=== PATIENT | male | born 1950 | race Caucasian/White ===

== ENCOUNTER → 2016-10-30 | Outpatient (CLI) | payer MEDICARE, BC ==
[2015-04-14 06:09] VITALS: BP 123/61
[~2016-10-30] MED LIST: AMIO200T2 PO; ASPI325T4 PO; CARV25TA2 PO; CLOP75TA PO; CLOP75TA27 PO; ICOS1CAP PO; LISI40TA PO; OXYC-323 PO; SIMV40TA3 PO
--- NOTE | 2016-10-30 10:56 | RAD ---
Indication: Abdominal aortic aneurysm. Technique: Ultrasound abdomen complete was performed. Comparison is a CT from December 27, 2015. Findings: Visualized pancreas is unremarkable. Distal abdominal aortic aneurysm measures up to 4.4 cm AP compared to 4.3 cm by my measurement on prior CT. It does not extend into either common iliac artery. IVC is patent. Liver is mildly increased in echogenicity with left hepatic cyst measuring 18 mm. Common bile duct measures 7 mm. Gallbladder is reported as absent. Kidneys are without hydronephrosis or mass. Spleen is not enlarged. Impression: 1. Stable abdominal aortic aneurysm. 2. Fatty infiltration of the liver. 3. Hepatic cyst. 4. Mildly prominent common bile duct can be within normal limits post cholecystectomy.
== END | disposition home or self-care (01) ==
LOC: US 08:14
PROVIDERS: ATTEND Internal Medicine Cardiovascular Disease
DX: I71.4 Abdominal aortic aneurysm, without rupture (principal); K76.0 Fatty (change of) liver, not elsewhere classified; K76.89 Other specified diseases of liver
CPT/HCPCS: 76700

== ENCOUNTER → 2017-10-21 | Outpatient (CLI) | payer MEDICARE ==
[~2017-10-21] MED LIST changes: -AMIO200T2 PO; -ASPI325T4 PO; -CARV25TA2 PO; -CLOP75TA PO; -CLOP75TA27 PO; +DIAZEPAM 10 MG TABLET.; +EPINEPHrine 1 MG/ML VIAL; +HEPARIN SODIUM 5,000 UNIT/ML VIAL for PCVC.; -ICOS1CAP PO; +IODIXANOL 270 MG/ML 100 ML VIAL.; +IV NORMAL SALINE 1000ML BAG 1,000 ML; +LIDOCAINE 1% Multi-Dose 20 ML VIAL.; -LISI40TA PO; +MIDAZOLAM HCL/PF 2 MG/2 ML VIAL.; -OXYC-323 PO; -SIMV40TA3 PO; +fentaNYL PF VIAL 100 MCG/2 ML VIAL
== END ==
LOC: PCVCINTER 09:05
DX: I71.4 Abdominal aortic aneurysm, without rupture (principal); I70.1 Atherosclerosis of renal artery; I10 Essential (primary) hypertension
CPT/HCPCS: 36245; 36252; 37242; 75630; 75716; 75726; 76937; 99153; C1751; C1760; C1769; C1894; J0171; J1644; J2250; J3010; J7030

== ENCOUNTER → 2017-11-04 | Outpatient (CLI) | payer MEDICARE | END | disposition home or self-care (01) | LOC: CT 08:59 | DX: M47.894 Other spondylosis, thoracic region (principal); I70.0 Atherosclerosis of aorta; N28.1 Cyst of kidney, acquired; R91.1 Solitary pulmonary nodule; Z90.49 Acquired absence of other specified parts of digestive tract | CPT/HCPCS: 71250 ==

== ENCOUNTER → 2018-12-01 | Outpatient (CLI) | payer MEDICARE, BC ==
[2015-04-14 06:09] VITALS: BP 123/61
[~2018-12-01] MED LIST changes: +AMIO200T4 PO; +ASPI325T8 PO; +CARV25TA2 PO; +CLOP75TA PO; +CLOP75TA57 PO; -DIAZEPAM 10 MG TABLET.; -EPINEPHrine 1 MG/ML VIAL; -HEPARIN SODIUM 5,000 UNIT/ML VIAL for PCVC.; +ICOS1CAP PO; -IODIXANOL 270 MG/ML 100 ML VIAL.; -IV NORMAL SALINE 1000ML BAG 1,000 ML; -LIDOCAINE 1% Multi-Dose 20 ML VIAL.; +LISI-130 PO; -MIDAZOLAM HCL/PF 2 MG/2 ML VIAL.; +OXYC1TAB15 PO; +SIMV40TA3 PO; -fentaNYL PF VIAL 100 MCG/2 ML VIAL
--- NOTE | 2018-12-01 13:26 | PCVCIMAG ---
EXAM: BILATERAL CAROTID DUPLEX INDICATION: Carotid Occlusive Disease. FINDINGS: Doppler Measurements (centimeters per second): RIGHT: Peak CCA-51, Peak ECA-73, Diastolic ICA-29, Peak ICA-58, ICA/CCA Ratio-1.1. LEFT: Peak CCA-77, Peak ECA-74, Diastolic ICA-25, Peak ICA-64, ICA/CCA Ratio-0.8. RIGHT CAROTID: The carotid bulb has moderate plaque. The proximal internal carotid artery shows <40% stenosis. The common carotid artery shows no significant stenosis. The external carotid artery shows no significant stenosis. LEFT CAROTID: The carotid bulb has moderate plaque. The proximal internal carotid artery shows <40% stenosis. The common carotid artery shows no significant stenosis. The external carotid artery shows no significant stenosis. Antegrade flow in both vertebral arteries. IMPRESSION: <40% stenosis of the right internal carotid artery with moderate plaque. <40% stenosis of the left internal carotid artery with moderate plaque. LOC:[place] [id number]
== END | disposition home or self-care (01) ==
LOC: PCVCIMAG 08:00
PROVIDERS: ATTEND Nuclear Medicine Nuclear Cardiology
DX: I65.23 Occlusion and stenosis of bilateral carotid arteries (principal); I25.119 Atherosclerotic heart disease of native coronary artery with unspecified angina pectoris
CPT/HCPCS: 93880

== ENCOUNTER → 2018-12-04 | Outpatient (CLI) | payer MEDICARE, BC ==
[2015-04-14 06:09] VITALS: BP 123/61
== END | disposition home or self-care (01) ==
LOC: PCVCCLINIC 10:00
PROVIDERS: ATTEND Nuclear Medicine Nuclear Cardiology
DX: I71.4 Abdominal aortic aneurysm, without rupture (principal); I10 Essential (primary) hypertension; I77.9 Disorder of arteries and arterioles, unspecified; I25.119 Atherosclerotic heart disease of native coronary artery with unspecified angina pectoris; E78.00 Pure hypercholesterolemia, unspecified; E78.5 Hyperlipidemia, unspecified; Z87.891 Personal history of nicotine dependence; Z79.899 Other long term (current) drug therapy; Z79.82 Long term (current) use of aspirin
CPT/HCPCS: G0463

== ENCOUNTER → 2020-05-19 | Outpatient (CLI) | payer MEDICARE, BC ==
[2015-04-14 06:09] VITALS: BP 123/61
[~2020-05-19] MED LIST changes: +IOHEXOL 350 MG/ML 100 ML VIAL. IV ONE; +SIMV40TA18 PO; -SIMV40TA3 PO
[2020-05-19 09:13] LABS: CREATININE 1.3 mg/dL (0.7-1.3); GFR 54.6
--- NOTE | 2020-05-19 14:32 | RAD ---
CTA of the abdomen, and pelvis compared to CTA of the abdomen and pelvis dated December 27, 2015 for abdominal aortic aneurysm. TECHNIQUE: Contiguous axial images are obtained through the abdomen and pelvis both before and after administration of IV contrast in the arterial phase. Sagittal and coronal MIPS are evaluated as are 3-D volume rendered images of the vasculature. Nonvascular findings: Heart is enlarged but stable. Simple hepatic cyst is stable. No significant abnormalities involving the liver, pancreas, spleen, or bilateral adrenal glands. Evaluation of solid organ parenchyma is limited by phase of contrast however. There are several simple cysts involving both kidneys, for which no additional follow-up is required. At the anterior medial pole of the right kidney there is 1.5 cm partially exophytic abnormality which is hyperdense on noncontrast imaging with Hounsfield units of 71. This is consistent with a hyperdense renal cyst, and once again no further evaluation is required. Similar benign hyperdense simple cyst is seen in the mid pole anteriorly of the left kidney, 1 cm, no follow-up. There are several small retroperitoneal and mesenteric lymph nodes, with no suspicious adenopathy identified. There are innumerable sigmoid diverticula, with no evidence of acute diverticulitis. Evaluation of large and small bowel is limited by lack of oral contrast. No areas of focal bowel wall thickening or bowel dilatation however. Urinary bladder is mostly decompressed. Prostate is enlarged with coarse calcifications centrally. This is grossly stable from the prior exam however. There are degenerative changes the spine with no osteoblastic or osteolytic bone lesions. There is likely at least some degree of bony central canal stenosis particularly at L1-2 and L2-3. Vascular findings: There has been interval treatment of an abdominal aortic aneurysm with an abdominal aortic endograft, resulting in involution of the aneurysm nearly entirely. Maximal sac diameter today is 2.9 cm. No evidence of endoleak. Mild soft and calcified atherosclerosis of the iliac and visualized femoral arteries. There are 2 left and there is one right renal artery, all which are patent with at least mild atherosclerosis. Superior mesenteric and celiac arteries are also patent with mild atherosclerosis. The DOTTIE is occluded at its origin by vascular. IMPRESSION: 1. Interval placement of an abdominal aortic endograft resulted in successful exclusion and involution of the abdominal aortic aneurysm. No evidence of endoleak. 2. Mild multifocal atherosclerosis with no hemodynamic significant stenoses in any distribution. 3. Stable enlarged prostate. PQRS Compliance Statement: One or more of the following individualized dose reduction techniques were utilized for this examination: 1. Automated exposure control 2. Adjustment of the mA and/or kV according to patient size 3. Use of iterative reconstruction technique Electronically signed by: Aldo Choudhary MD (05/19/2020 2:29 PM) [id number]
--- NOTE | 2020-05-20 14:04 | RAD ---
MR#: [id number] Date of Study: 05/19/2020 Ordering Physician: PETR BROWNLEE, Referring Physician: LILLIAN APONTE Tech: RT Randal (R) (N) APPROVED REPORT Test Type: Exercise Stress Nurse/Tech: Sherry TREJO Test Indications: CAD, Dyspnea Cardiac History: CABG x4 in 2015, HTN, See EMR Medications: See EMR Medical History: Smoker, See EMR Resting ECG: SR Resting Heart Rate: 53 bpm Resting Blood Pressure: 147/81mmHg Pretest Chest Pain: No chest pain Nurse/Tech Notes Lungs CTA, Heart tones regular. Consent: The procedure was explained to the patient in lay terms. Informed consent was witnessed. Lamonte eout was entered into [employer]. History and Stress Test performed by LAURENCE Lakhani Stress Symptoms Dyspnea POST EXERCISE Reason for Termination: Reached target heart rate Target HR: Yes Max HR: 132 bpm 103% of Maximum Predicted HR: 127 bpm Exercise duration: 7:39 min:sec, 3 Stage Exercise capacity: 10.0METs Max Blood Pressure: 186/79mmHg Blood Pressure response to exercise: Normal blood pressure response during stress. Heart Rate response to exercise: WNL Chest Pain: No. Arrhythmia: Yes. Frequent PVCs and PACs ST Change: No. INTERPRETATION Stress EKG Conclusion: No evidence of stress induced EKG changes. Imaging Protocol IMAGE PROTOCOL: Rest Tc-99m/stress Tc-99m 1 day Rest: Stress: Viability: Radiopharm.Tc99m XtvycbgrhFv28b Sestamibi Qkwn79gQr 33mCi Duration 15min. 15min. Img Date 05/19/2020 05/19/2020 Inj-Img [id number]. 60min. Rest Admin Site:IV - Left AntecubitalAdministrator:LAURENCE Lakhani Stress Admin Site: IV - Left AntecubitalAdministrator: RT Randal (R)(N) STRESS DATA End Diast. Vol.240.0mlAv. Heart Rate73.0bpm End Syst. Vol.182.0mlCO Index BSA0.0L/min Myocardial Wlbt770.0gEject. Ihnnvqqo13.0% Stress Rates Pk. Fill Rate1.08EDV/secLVtime Pk. Fill 247.47msec Pk. Empty Rate1.68ESV/secLVtime Pk. Ypohb717.86msec 1/3 Pk. Fill0.29EDV/sec Stress Scores Regional WT2.00Summed WT25.00 Regional WM1.00Summed WM29.00 LV Perfusion Extensive basal to distal inferior basal to mid inferolateral basal to distal septal and mid to dista l anterior wall and apical fixed defect suggestive of prior large territory LAD and RCA territory inf arcts. No obvious reversible defects are noted. Wall Motion Severe LV dysfunction with ejection fraction of 20 to 25% LV Perf. Quant 17 Seg. SSS33.00 17 Seg. SRS33.00 17 Seg. SDS2.00 Stress Defect Extent (% LAD)68.10Rest Defect Extent (% LAD)65.00Rev. Defect Extent (% LAD)3.10 Stress Defect Extent (% LCX) 43.80Rest Defect Extent (% LCX)23.80Rev. Defect Extent (% LCX)21.30 Stress Defect Extent (% RCA)54.40Rest Defect Extent (% RCA)65.60Rev. Defect Extent (% RCA)0.00 Stress Defect Extent (% DANG)63.00Rest Defect Extent (% DANG)60.20Rev. Defect Extent (% DANG)8.70 Other Information Quality:Average Risk Assessment: Moderate-High Risk Conclusion 1. No evidence of stress-induced EKG changes with adequate workload at maximum of 10 metabolic equiva lents 2. Large fixed defect as described above involving the LAD and RCA territories 3. Severe LV dysfunction with ejection fraction of 25% 4. Moderate to high risk for future cardiovascular events Signed by : Petr Brownlee, Electronically Approved : 05/20/2020 14:04:07
== END | disposition home or self-care (01) ==
LOC: NM 08:55
PROVIDERS: ATTEND Internal Medicine Cardiovascular Disease
DX: I71.4 Abdominal aortic aneurysm, without rupture (principal); N40.0 Benign prostatic hyperplasia without lower urinary tract symptoms; K57.30 Diverticulosis of large intestine without perforation or abscess without bleeding; K57.92 Diverticulitis of intestine, part unspecified, without perforation or abscess without bleeding; I51.7 Cardiomegaly; K76.89 Other specified diseases of liver; I10 Essential (primary) hypertension; F17.210 Nicotine dependence, cigarettes, uncomplicated; Z95.1 Presence of aortocoronary bypass graft
CPT/HCPCS: 36415; 74174; 78452; 82565; 84520; 93017; A9500; Q9967

== ENCOUNTER 2020-06-23 06:36 | Outpatient (CLI) | payer MEDICARE, BC ==
[~2020-06-23] VITALS: Ht 182.9 cm; Wt 98.4 kg
[2020-06-23] VITALS (11 sets, daily range): BP systolic 86–139; BP diastolic 54–68
[~2020-06-23 06:36] MED LIST changes: -AMIO200T4 PO; +AMIO200T6 PO; -IOHEXOL 350 MG/ML 100 ML VIAL. IV ONE
[2020-06-23] MEDS ORDERED: AMLO-186 PO (07:12)
[2020-06-23 07:29] LABS: HEMATOCRIT 49.2 % (39.0-53.0); HEMOGLOBIN 16.6 g/dL (13.0-17.5); RED BLOOD COUNT 6.08 x10^6/uL (4.30-5.70); RED CELL DISTRIBUTION WIDTH 14.2 % (11.5-14.5); WHITE BLOOD COUNT 8.5 x10^3/uL (4.0-11.0)
[2020-06-23 07:38] LABS: CALCIUM 8.6 mg/dL (8.5-10.1); CREATININE 1.5 mg/dL (0.7-1.3); GFR 46.3; POTASSIUM 4.2 mmol/L (3.5-5.1)
[2020-06-23] MEDS ORDERED: IODIXANOL 320 MG/ML 100 ML VIAL. ONE (07:42)
[2020-06-23] MEDS ORDERED: LIDOCAINE 1% Multi-Dose 20 ML VIAL. ONE (07:42)
[2020-06-23] MEDS ORDERED: HEPARIN for ARTERIAL LINE 1,500 ML ONE (07:42)
[2020-06-23] MEDS ORDERED: MIDAZOLAM HCL/PF 2 MG/2 ML VIAL. ONE (08:24)
[2020-06-23] MEDS ORDERED: fentaNYL PF VIAL 100 MCG/2 ML VIAL ONE (08:24)
--- NOTE | 2020-06-23 08:41 | PDOC1 ---
History and Physical Visit Information Date of Admission: Jun 23, 2020 Source: Patient History of Present Illness History of Present Illness Rupert is a pleasant 69-year-old man with a past medical history as noted below who presents to the hospital today for planned cardiac catheterization in the setting of an abnormal stress test and exertional dyspnea and chest pain. Risks and benefits were discussed with the patient and he is willing to proceed Cardiac Risk Factors Comments 1. Hypertension 2. PAD 3. Prior coronary artery bypass surgery 4. Dyslipidemia 5. Tobacco abuse Current Medications Current Medications Current Medications Fentanyl Citrate (Fentanyl 2ml Vial) 100 mcg STK-MED ONCE .ROUTE ; Start 06/23/20 at 08:24; Stop 06/23/20 at 08:24; Status DC Heparin Sodium/ Sodium Chloride 1,500 ml @ As Directed STK-MED ONCE .ROUTE ; Start 06/23/20 at 07:42; Stop 06/23/20 at 07:43; Status DC Iodixanol (Visipaque 320) 100 ml STK-MED ONCE .ROUTE ; Start 06/23/20 at 07:42; Stop 06/23/20 at 07:42; Status DC Lidocaine HCl (Lidocaine 1% 20ml Vial) 20 ml STK-MED ONCE .ROUTE ; Start 06/23/20 at 07:42; Stop 06/23/20 at 07:42; Status DC Midazolam HCl (Versed) 2 mg STK-MED ONCE .ROUTE ; Start 06/23/20 at 08:24; Stop 06/23/20 at 08:24; Status DC Allergies Allergies Allergies Coded Allergies Type Severity Reaction Last Updated Verified No Known Drug Allergies 04/14/15 No Social History Comments Positive for occasional alcohol and tobacco use. No illicit drug use. He is . ROS Review of System Negative for 10 out of 14 systems reviewed unless otherwise mentioned above in HPI Physical Exam Comments The patient appeared well nourished and normally developed. Head exam is unremarkable. No scleral icterus or corneal arcus noted. Neck is without jugular venous distension, thyromegaly, or carotid bruits. Carotid upstr okes are brisk bilaterally. Lungs are clear to auscultation and percussion. Cardiac exam reveals the PMI to be normally sized and situated. Rhythm is regular. First and second heart sounds normal. No murmurs, rubs or gallops. Abdominal exam reveals normal bowel sounds, no masses, no organomegaly and no aortic enlargement. Extremities are nonedematous and both femoral and pedal pulses are normal. Msk: No traumua Neuro: No focal deficits Vitals VITALS Vital Signs Date Time Temp Pulse Resp B/P (MAP) Pulse Ox O2 Delivery O2 Flow Rate FiO2 06/23/20 07:28 97.8 68 16 139/62 (87) 96 Room Air 97.8 Labs Labs Laboratory Tests Test 06/23/20 07:18 White Blood Count 8.5 x10^3/uL (4.0-11.0) Red Blood Count 6.08 x10^6/uL (4.30-5.70) Hemoglobin 16.6 g/dL (13.0-17.5) Hematocrit 49.2 % (39.0-53.0) Mean Corpuscular Volume 81 fL (79-100) Mean Corpuscular Hemoglobin 27 pg (25-35) Mean Corpuscular Hemoglobin Concent 34 g/dL (31-37) Red Cell Distribution Width 14.2 % (11.5-14.5) Platelet Count 146 x10^3/uL (140-400) Prothrombin Time 13.0 SEC (11.7-14.0) Prothromb Time International Ratio 1.0 (0.8-1.1) Sodium Level 143 mmol/L (136-145) Potassium Level 4.2 mmol/L (3.5-5.1) Chloride Level 108 mmol/L (98-107) Carbon Dioxide Level 24 mmol/L (21-32) Anion Gap 11 (6-14) Blood Urea Nitrogen 22 mg/dL (8-26) Creatinine 1.5 mg/dL (0.7-1.3) Estimated GFR (Cockcroft-Gault) 46.3 Glucose Level 133 mg/dL (70-99) Calcium Level 8.6 mg/dL (8.5-10.1) Laboratory Tests Test 06/23/20 07:18 White Blood Count 8.5 x10^3/uL (4.0-11.0) Red Blood Count 6.08 x10^6/uL (4.30-5.70) Hemoglobin 16.6 g/dL (13.0-17.5) Hematocrit 49.2 % (39.0-53.0) Mean Corpuscular Volume 81 fL (79-100) Mean Corpuscular Hemoglobin 27 pg (25-35) Mean Corpuscular Hemoglobin Concent 34 g/dL (31-37) Red Cell Distribution Width 14.2 % (11.5-14.5) Platelet Count 146 x10^3/uL (140-400) Prothrombin Time 13.0 SEC (11.7-14.0) Prothromb Time International Ratio 1.0 (0.8-1.1) Sodium Level 143 mmol/L (136-145) Potassium Level 4.2 mmol/L (3.5-5.1) Chloride Level 108 mmol/L (98-107) Carbon Dioxide Level 24 mmol/L (21-32) Anion Gap 11 (6-14) Blood Urea Nitrogen 22 mg/dL (8-26) Creatinine 1.5 mg/dL (0.7-1.3) Estimated GFR (Cockcroft-Gault) 46.3 Glucose Level 133 mg/dL (70-99) Calcium Level 8.6 mg/dL (8.5-10.1) ECG EKG: NSR VTE Prophylaxis Ordered VTE Prophylaxis Devices: No VTE Pharmacological Prophylaxi: No Assessment/Plan Assessment/Plan 1. Patient with abnormal stress test and exertional angina and shortness of breath. Plan for a cardiac catheterization. Justicifation of Admission Dx: Justifications for Admission: Justification of Admission Dx: N/A PETR BLUM MD Jun 23, 2020 08:41
--- NOTE | 2020-06-23 08:42 | PDOC ---
MODERATE SEDATION ASSESSMENT RISKS/ALTERNATIVES Risks/Alternatives Risks and alternatives of this type of sedation and procedure discussed with: RISK/ALTERNATIVES: Patient H & P ON CHART H & P H & P on chart and reviewed for co-morbid conditions and appropriate labs. H&P ON CHART: Yes STATUS PREG STATUS ASSESSED: N/A MEDS/ALLERGIES REVIEWED Meds/Allergies Reviewed Medications and Allergies including time and route of recently administered narcotics and sedatives. MEDS/ALLERGIES REVIEWED: Yes ASA RATING ASA RATING: II AIRWAY ASSESSMENT Airway Assessment Airway patency, oral function limitations, presence of caps, crowns, dentures, partials, and ability to extend neck assessed. AIRWAY ASSESSMENT: Yes MALLAMPATI SCORE MALLAMPATI SCORE: II PRE-SEDATION ASSESSMENT PRE-SEDATION ASSESSMENT: Yes PETR BLUM MD Jun 23, 2020 08:42
[2020-06-23] MEDS ORDERED: IV NORMAL SALINE 1000ML BAG 1,000 ML IV ONE (09:15)
[2020-06-23] MEDS ORDERED: IODIXANOL 320 MG/ML 100 ML VIAL. IART ONE (09:15)
[2020-06-23] MEDS ORDERED: CONTRAST GIVEN. MC PRN (09:15)
[2020-06-23] MEDS ORDERED: fentaNYL PF VIAL 100 MCG/2 ML VIAL IV ONE (09:15)
[2020-06-23] MEDS ORDERED: MIDAZOLAM HCL/PF 2 MG/2 ML VIAL. IV ONE (09:15)
[2020-06-23] MEDS ORDERED: LIDOCAINE 1% Multi-Dose 20 ML VIAL. INJ ONE (09:15)
--- NOTE | 2020-06-23 11:35 | CARD ---
MR#: [id number] Date of Study: 06/23/2020 Ordering Physician: PETR BROWNLEE, Referring Physician: PETR BROWNLEE, Tech: RT Estefania (R) APPROVED REPORT Technologist: RT Estefania (R) Nurse: Jordyn Ghosh R.N. Procedure(s) performed: FL TIME: 7.0 MINS DOSE: 71 GYCM2 CONTRAST: 85 ML MODERATE SEDATION: 56 MIN LHC, Coronary angiography, Bypass angiography, Supravalvular aortography HISTORY The patient is a 69 year-old male with a history of : coronary artery disease, tobacco history() , hy pertension, dyslipidemia. INDICATION The indication(s) include : positive stress test, unstable angina . CSHA Clinical Frailty Scale CS Clinical Frailty Scale: Moderately Frail Heart Failure Heart Failure: Yes If Yes, Newly Diagnosed: No If Yes, HF Type: Systolic If Yes, NYHA Class: Class II PROCEDURE NARRATIVE After appropriate informed consent the patient was brought to the catheterization laboratory in the [facility] groin was prepped and draped in usual sterile fashion. Procedure details: A 6 Bulgarian introducer sheath was placed in the right common femoral artery via the modified Seldinger technique. Diagnostic angiography was performed with a JR4, JL4, DOTTIE and MPA catheters. Aortograph y was performed with a pigtail catheter. At case completion the right groin sheath was removed and h emostasis was achieved with manual compression. Findings: Aorta 90/50 LVEDP 8 mmHg No pullback gradient Supravalvular aortography did not reveal any evidence of aortic aneurysm and no evidence of right-rocío ed venous bypass graft Coronary angiography: Left main is a large-caliber vessel with normal angiographic appearance LAD is a moderate caliber vessel with a proximal stent with 90% in-stent restenosis. The mid to dis steven vessel is seen to fill via a patent DOTTIE graft and has no significant disease. D1 and D2 are moderate caliber vessels with proximal subtotal occlusions. These vessels are seen to fill via a radial jump graft. The left circumflex is a small caliber nondominant vessel. OM1 is a small caliber vessel with moderate diffuse disease of up to 50-60%. RCA is a large caliber dominant vessel with a proximal occlusion at the site of a previously placed s tent. The distal vessel seen to fill via faint [id number] collaterals. Bypass angiography: LOCKHART to the LAD is widely patent without anastomotic stenosis Radial graft to the first and second diagonals is widely open without any anastomotic stenosis Saphenous vein graft to the RCA was unable to be injected and likely occluded. Conclusion 1. Normal left-sided filling pressures 2. Severe three-vessel [place] coronary artery disease 3. 3 out of 4 bypass grafts patent Recommendations Aggressive Medical Therapy Signed by : Petr Brownlee, Electronically Approved : 06/23/2020 11:34:55
--- NOTE | 2020-06-23 14:05 | NUR ---
Pt ambulated and tolerated PO. Discharge instructions reviewed with pt. PIV dcd. Pt home with family
== END 2020-06-23 14:07 | disposition home or self-care (01) ==
LOC: CCL 06:36
PROVIDERS: ATTEND Internal Medicine Cardiovascular Disease
DX: I25.110 Atherosclerotic heart disease of native coronary artery with unstable angina pectoris (principal); R94.39 Abnormal result of other cardiovascular function study; R06.00 Dyspnea, unspecified; I11.0 Hypertensive heart disease with heart failure; I50.9 Heart failure, unspecified; E78.00 Pure hypercholesterolemia, unspecified; F17.210 Nicotine dependence, cigarettes, uncomplicated; Z79.82 Long term (current) use of aspirin; Z79.899 Other long term (current) drug therapy; Z90.49 Acquired absence of other specified parts of digestive tract; Z98.890 Other specified postprocedural states; Z72.89 Other problems related to lifestyle
CPT/HCPCS: 36415; 80048; 85027; 85610; 93459; 93567; 99152; 99153; C1769; C1892; J1644; J2250; J3010; J3490; J7030; Q9967